=== PATIENT | female | born 1955 | race Caucasian/White ===

== ENCOUNTER → 2017-12-08 10:14 | Outpatient (CLI) | payer OTHER, SELFPAY ==
--- NOTE | 2017-12-08 10:18 | MM_ITS ---
MM Dig screening mamm BI w/CAD CAD Screening COMPARISON: Digital mammograms 08/20/2016 and outside analog mammograms from 04/25/2013 INDICATION: There is history of breast cancer in patient's paternal aunt. TECHNIQUE: Standard CC and MLO images were obtained. R2 CAD reviewed. FINDINGS: The breasts are closed primarily of fat with minimal scattered fibroglandular densities in the subareolar regions. There is a mole marker on each breast. Is stable nodular density upper outer quadrant right breast likely intramammary node. There is a benign-appearing calcination left breast. There is no suspicious lesion and there are no suspicious microcalcifications. IMPRESSION: Fibrofatty parenchyma with no suspicious lesion seen BI-RADS Category: 2 Benign Finding(s) RECOMMENDED FOLLOW-UP: 1YR - 1 YEAR FOLLOW-UP (A letter has been sent to the patient regarding results of the study.)
== END ==
PROVIDERS: Family Provider Internal Medicine Adolescent Medicine; PCP Internal Medicine Adolescent Medicine; Visit Provider Internal Medicine Adolescent Medicine
DX: Z12.31 Encounter for screening mammogram for malignant neoplasm of breast (principal)
CPT/HCPCS: 77067

== ENCOUNTER → 2018-03-02 08:06 | Outpatient (CLI) | payer OTHER, SELFPAY ==
[2018-03-02 09:20] LABS: Alanine Aminotransferase 23 U/L (12-78); Albumin Level 3.7 gm/dL (3.4-5.0); Albumin/Globulin Ratio 1.1 (1.1-1.8); Alkaline Phosphatase 70 U/L (46-116); Anion Gap 12.8 mEq/L (5-15); Aspartate Amino Transferase 9 U/L (15-37); Bilirubin,Total 0.7 mg/dL (0.2-1.0); Blood Urea Nitrogen 25 mg/dL (7-18); Calcium 8.9 mg/dL (8.5-10.1); Carbon Dioxide 26 mmol/L (21.0-32.0); Chloride 108 mmol/L (98-107); Chol/HDL Ratio 2.4 (1-3.5); Cholesterol 160 mg/dL (140-200); Creatinine,Serum 1.46 mg/dL (0.55-1.02); Estimated Glomerular Filt Rate 36 ml/min (>60); GFR (African American) 44 ML/MIN (>60); Globulin 3.5 gm/dl (1.3-3.2); Glucose 109 mg/dL (74-106); HDL Cholesterol 68 mg/dL (29-89); LDL Cholesterol 79 mg/dL (0-130); Potassium 3.8 mmoL/L (3.5-5.1); Sodium 143 mmol/L (136-145); Thyroid Stimulating Hormone 4.75 uIU/ml (0.358-3.740); Total Protein,Serum 7.2 gm/dL (6.4-8.2); Triglycerides 64 mg/dL (30-200); VLDL Cholesterol 13 mg/dL (0-40)
[2018-03-03 14:54] LABS: Vitamin B12 1325 pg/mL (232-1245)
== END ==
PROVIDERS: PCP Internal Medicine Adolescent Medicine; Visit Provider Nurse Practitioner Family
DX: Z00.00 Encounter for general adult medical examination without abnormal findings (principal); E78.5 Hyperlipidemia, unspecified; I10 Essential (primary) hypertension; E03.9 Hypothyroidism, unspecified; E53.8 Deficiency of other specified B group vitamins
CPT/HCPCS: 36415; 80053; 80061; 82607; 84443

== ENCOUNTER → 2018-04-22 10:38 | Outpatient (CLI) | payer OTHER, SELFPAY ==
[2018-04-22 14:03] LABS: Alanine Aminotransferase 18 U/L (12-78); Albumin Level 3.8 gm/dL (3.4-5.0); Albumin/Globulin Ratio 1.1 (1.1-1.8); Alkaline Phosphatase 64 U/L (46-116); Anion Gap 14.1 mEq/L (5-15); Aspartate Amino Transferase 13 U/L (15-37); Bilirubin,Total 0.9 mg/dL (0.2-1.0); Blood Urea Nitrogen 31 mg/dL (7-18); Calcium 9.2 mg/dL (8.5-10.1); Carbon Dioxide 28 mmol/L (21.0-32.0); Chloride 106 mmol/L (98-107); Chol/HDL Ratio 2.1 (1-3.5); Cholesterol 149 mg/dL (140-200); Creatinine,Serum 1.35 mg/dL (0.55-1.02); Estimated Glomerular Filt Rate 40 ml/min (>60); GFR (African American) 48 ML/MIN (>60); Globulin 3.4 gm/dl (1.3-3.2); Glucose 101 mg/dL (74-106); HDL Cholesterol 70 mg/dL (29-89); LDL Cholesterol 66 mg/dL (0-130); Potassium 4.1 mmoL/L (3.5-5.1); Sodium 144 mmol/L (136-145); Thyroid Stimulating Hormone 3.77 uIU/ml (0.358-3.740); Total Protein,Serum 7.2 gm/dL (6.4-8.2); Triglycerides 63 mg/dL (30-200); VLDL Cholesterol 13 mg/dL (0-40)
[2018-04-22 14:20] LABS: Basophils % 0.8 % (0.1-2.0); Eosinophils # 0.1 K/mm3 (0.0-0.4); Eosinophils % 1.9 % (0.1-12.0); Hematocrit 40.3 % (37.0-47.0); Hemoglobin 13.4 g/dL (12.2-16.2); Lymphocytes # 1.7 K/mm3 (0.7-4.5); Lymphocytes % 29.6 K/mm3 (10-50); Mean Corpuscular HGB Conc 33.3 g/dL (31.8-35.4); Mean Corpuscular Hemoglobin 28.9 pg (27.0-31.2); Mean Platelet Volume 7.5 fl (7.4-10.4); Monocytes # 0.3 K/mm3 (0.1-1.0); Monocytes % 4.7 % (1.7-9.3); Neutrophils # 3.6 K/mm3 (1.8-7.8); Neutrophils % 63.1 % (37.0-80.0); Platelet Count 219 K/mm3 (142-424); Red Blood Count 4.63 M/mm3 (4.20-5.40); Red Cell Distribution Width 13.9 % (11.5-17.5); White Blood Count 5.6 K/mm3 (4.8-10.8)
== END ==
PROVIDERS: PCP Internal Medicine Adolescent Medicine; Visit Provider Internal Medicine Adolescent Medicine
DX: E78.5 Hyperlipidemia, unspecified (principal); E03.9 Hypothyroidism, unspecified; I10 Essential (primary) hypertension
CPT/HCPCS: 36415; 80053; 80061; 84443; 85025

== ENCOUNTER → 2018-12-20 08:52 | Outpatient (POV) | payer OTHER, SELFPAY ==
[2018-12-20 14:19] LABS: Anion Gap 12.7 mEq/L (5-15); Blood Urea Nitrogen 25 mg/dL (7-18); Calcium 8.8 mg/dL (8.5-10.1); Carbon Dioxide 28 mmol/L (21.0-32.0); Chloride 109 mmol/L (98-107); Estimated Glomerular Filt Rate 41 ml/min (>60); GFR (African American) 50 ML/MIN (>60); Glucose 102 mg/dL (74-106); Potassium 4.7 mmoL/L (3.5-5.1); Sodium 145 mmol/L (136-145)
== END ==
PROVIDERS: PCP Internal Medicine Adolescent Medicine; Visit Provider Internal Medicine Adolescent Medicine
DX: E78.5 Hyperlipidemia, unspecified (principal); E03.9 Hypothyroidism, unspecified; I10 Essential (primary) hypertension
CPT/HCPCS: 36415; 80048

== ENCOUNTER → 2019-04-19 10:47 | Outpatient (POV) | payer OTHER, SELFPAY | PROVIDERS: Visit Provider Dermatology | DX: Z00.00 Encounter for general adult medical examination without abnormal findings (principal) ==

== ENCOUNTER → 2020-01-05 09:53 | Outpatient (CLI) | payer MEDICARE, OTHER, SELFPAY ==
--- NOTE | 2020-01-05 10:46 | MM_ITS ---
PROCEDURE: MM DIG SCREENING MAMM BI W/CAD Digital Breast Tomosynthesis Included CLINICAL INDICATION: SCREENING COMPARISON: DIGMAMMS MAMMOGRAM SCREEN-STRANNER N/C from 04/25/2013 [facility] DIG MAMM-SCREEN ENE W/CAD from 08/20/2016 [facility] MM Dig screening mamm BI w/CAD from 12/08/2017 TECHNIQUE: Standard CC and MLO images and 3D Tomosynthesis was obtained. R2 CAD reviewed. FINDINGS: Mostly fatty replaced fibroglandular tissue. Benign-appearing calcifications and benign-appearing nodules in the upper outer right breast with a asymmetric density in the medial right breast unchanged. No malignant appearing mass or malignant-appearing microcalcification IMPRESSION: BI-RAD Category: 2 Benign Finding(s) FOLLOW-UP: 1YR 1 Year Follow-up (A letter has been sent to the patient regarding results of the study.) Dictated by: John Lee MD 01/06/2020 14:09 Electronically signed by John Lee MD in [place] 01/06/2020 14:09
== END ==
PROVIDERS: PCP Internal Medicine Adolescent Medicine; Visit Provider Internal Medicine Adolescent Medicine
DX: Z12.31 Encounter for screening mammogram for malignant neoplasm of breast (principal)
CPT/HCPCS: 77063; 77067

== ENCOUNTER → 2020-11-13 18:18 | Outpatient (CLI) | payer MEDICARE, OTHER, SELFPAY ==
[2020-11-13 19:02] LABS: Basophils % 0.8 % (0.1-2.0); Eosinophils # 0.1 K/mm3 (0.0-0.4); Eosinophils % 2.4 % (0.1-12.0); Hematocrit 42.1 % (37.0-47.0); Hemoglobin 14.3 g/dL (12.2-16.2); Lymphocytes % 35.1 % (10-50); Mean Corpuscular HGB Conc 33.9 g/dL (31.8-35.4); Mean Corpuscular Hemoglobin 29.7 pg (27.0-31.2); Mean Corpuscular Volume 87.4 fl (81-99); Mean Platelet Volume 9.4 fl (7.4-10.4); Monocytes # 0.3 K/mm3 (0.1-1.0); Neutrophils # 3.1 K/mm3 (1.8-7.8); Neutrophils % 55.7 % (37.0-80.0); Platelet Count 221 K/mm3 (142-424); Red Blood Count 4.82 M/mm3 (4.20-5.40); Red Cell Distribution Width 14.5 % (11.5-17.5); White Blood Count 5.6 K/mm3 (4.8-10.8)
[2020-11-13 19:23] LABS: Alanine Aminotransferase 26 U/L (12-78); Albumin Level 4.3 g/dl (3.5-5.0); Albumin/Globulin Ratio 1.5 (1.1-1.8); Alkaline Phosphatase 81 U/L (38-126); Anion Gap 9.3 mEq/L (5-15); Aspartate Amino Transferase 33 U/L (14-36); Bilirubin,Total 0.7 mg/dl (0.2-1.3); Blood Urea Nitrogen 16 mg/dl (7-17); Calcium 9.5 mg/dl (8.4-10.2); Carbon Dioxide 29 mmol/L (22.0-30.0); Chloride 108 mmol/L (98-107); Chol/HDL Ratio 2.7 (1-3.5); Cholesterol 155 mg/dl (140-200); Estimated Glomerular Filt Rate 45 ml/min (>60); GFR (African American) 55 ML/MIN (>60); Globulin 2.9 g/dL (1.3-3.2); Glucose 98 mg/dl (74-100); HDL Cholesterol 58 mg/dl (40-60); Potassium 4.3 mmoL/L (3.5-5.1); Sodium 142 mmol/L (136-145); Total Protein,Serum 7.2 g/dl (6.3-8.2); Triglycerides 93 mg/dl (30-150); VLDL Cholesterol 19 mg/dL (0-40)
[2020-11-13 19:35] LABS: Direct LDL Cholesterol 57.33 mg/dL (100-129)
== END ==
PROVIDERS: Visit Provider Internal Medicine Adolescent Medicine
DX: I20.8 Other forms of angina pectoris (principal); N18.30 Chronic kidney disease, stage 3 unspecified
CPT/HCPCS: 80053; 80061; 85025

== ENCOUNTER → 2020-11-15 11:52 | Outpatient (CLI) | payer MEDICARE, OTHER, SELFPAY ==
--- NOTE | 2020-11-15 11:57 | NM_ITS ---
APPROVED REPORT Exam: Nuclear Stress Test Indication: Chest pain, SOB, Syncope, Fatigue, HTN, High cholesterol, Family history Patient Location: Outpatient Stress Tech: Doris Lindonkson [place] Tech:VALERIE Her RT(R)(N) Ht: 5 ft 6 in Wt: 185 lbs Bra Size: 42D HR: 64 bpm BP: 188/80 mmHg BSA: 1.93 m2 BMI: 29.8 History: Chest pain, SOB, Syncope, Fatigue, HTN, High cholesterol, Family history Procedure: Patient received a 0.4 mg of intravenous Lexiscan, resting heart rate 64 bpm, resting blood pressure 188/80 mmHg, with Lexiscan maximum heart rate achived was 91 bpm which is Less than 85 % of the maximum predicted heart rate and blood pressure was 186/95 mmHg. With Lexiscan, patient denied any complaint of chest pain. Electrocardiogram Resting electrocardiogram shows sinus rhythm, with Lexiscan there is less than 1.[address] segment depression noted from the baseline EKG. The EKG portion of the Lexiscan is nondiagnostic. Cardiac Stress and Resting SPECT Images: Cardiac Stress and Resting SPECT images were obtained using technetium 99m Myoview 32.9 mCi stress and 10.68 mCi at rest. Gated SPECT for analysis of segmental wall motion and calculation of the ejection fraction also done. Prone images were also obtained. Cardiac stress and resting SPECT images show uniform myocardial activity without segmental perfusion abnormality, computer derived ejection fraction is over 65% with no regional wall motion abnormality, right ventricle is normal size and contractility. Conclusion: 1. The EKG portion of the Lexiscan is nondiagnostic. 2. No scintigraphic evidence of reversible ischemia seen, computer derived ejection fraction is over 65% with no regional wall motion abnormality, right ventricle is normal size and contractility. 3. Normal Lexiscan Myoview study. Electronically signed by : Shlomo Fuchs, 11/15/2020 15:52:12
--- NOTE | 2020-11-15 14:22 | CA_ITS ---
APPROVED REPORT Exam: Pharmacologic Technologist: Elaina Patel, Stress Nurse: MARILU Ht: 5 ft 5 in Wt: 185 lbs BSA: 1.91 m2 HR: 64 bpm BP: 188/80 mmHg Indications: CP Medical History Medical History: HTN Allergies: TYLENOL, SULFA Cardiac Risk Factors: HTN, , FHX of CAD Stress Test Details Test: LEXISCAN HR Resting HR: 63 bpm Max Heart Rate (APMHR): 155 bpm Max HR Achieved: 95 bpm Target HR (85% APMHR): 131 bpm % of APMHR: 61 Recovery HR: 83 bpm BP Resting BP: 188/80 mmHg Max BP: 188/80 mmHg Recovery BP: 177.0/86.0 mmHg ECG Clinical Exercise duration: 04:01 min Highest Stage Achieved: Stress ECG Conclusion PT HAD MILD CHEST PRESSURE, MILD STOMACH DISCOMFORT, MILD SOA. NO ARRHYTHMIAS, NO SIGNIFICANT ST-T CHANGES. UNREMARKABLE LEXISCAN STRESS. MYOVIEW IMAGES REPORTED SEPERATELY. Test Summary REST . . . . . . . Sitting REST 04:20 . . 63 . 188/ 80 . . Stage 1 . . . . . . . Cardiolite injected Stage 1 01:00 . . 78 . . . . Stage 2 01:00 . . 90 . 186/ 95 . . Stage 3 01:00 . . 94 . 185/ 97 . . Stage 4 01:00 . . 88 . 173/ 89 . . Stage 4 01:01 . . 87 . 173/ 89 . Stop exercise at 04:01 RECOVERY 01:00 . . 89 . . . . RECOVERY 02:00 . . 82 . 177/ 86 . . RECOVERY 03:00 . . 79 . 179/ 97 . . RECOVERY 03:28 . . 81 . 179/ 97 . . Electronically signed by : Shlomo Fuchs, 11/15/2020 15:43:57
== END ==
PROVIDERS: PCP Internal Medicine Adolescent Medicine; Visit Provider Internal Medicine Adolescent Medicine
DX: I20.8 Other forms of angina pectoris (principal)
CPT/HCPCS: 78452; 93017; A9502; J2785

== ENCOUNTER → 2021-03-15 09:59 | Outpatient (CLI) | payer MEDICARE, OTHER, SELFPAY ==
--- NOTE | 2021-03-15 10:01 | MM_ITS ---
PROCEDURE: MM DIG SCREENING MAMM BI W/CAD Digital Breast Tomosynthesis Included CLINICAL INDICATION: SCREENING COMPARISON: MG [facility] DIG MAMM-SCREEN ENE W/CAD from 08/20/2016 MG [facility] MM Dig screening mamm BI w/CAD from 12/08/2017 MG MM DIG SCREENING MAMM BI W/CAD from 01/05/2020 TECHNIQUE: Standard CC and MLO images and 3D Tomosynthesis was obtained. R2 CAD reviewed. FINDINGS: There are scattered areas of fibroglandular density. Benign-appearing nodules on the right are unchanged. No suspicious appearing mass, malignant-appearing microcalcification, architectural distortion, or skin thickening.. Benign-appearing calcifications. No change with no evidence malignancy IMPRESSION: Benign findings BI-RAD Category: 2 Benign Finding FOLLOW-UP: 1 YR 1 Year Follow-up (A letter has been sent to the patient regarding results of the study.) Dictated by: John Lee MD 03/28/2021 11:21 John Lee MD in [place] 03/28/2021 11:21
== END ==
PROVIDERS: PCP Internal Medicine Adolescent Medicine; Visit Provider Internal Medicine Adolescent Medicine
DX: Z12.31 Encounter for screening mammogram for malignant neoplasm of breast (principal)
CPT/HCPCS: 77063; 77067

== ENCOUNTER → 2021-07-09 18:48 | Outpatient (CLI) | payer MEDICARE, OTHER, SELFPAY ==
[2021-07-09 19:43] LABS: Anion Gap 13.6 mEq/L (5-15); Blood Urea Nitrogen 43 mg/dl (7-17); Calcium 9.4 mg/dl (8.4-10.2); Carbon Dioxide 27 mmol/L (22.0-30.0); Chloride 101 mmol/L (98-107); Estimated Glomerular Filt Rate 28 ml/min (>60); GFR (African American) 34 ML/MIN (>60); Glucose 105 mg/dl (74-100); Potassium 4.6 mmoL/L (3.5-5.1); Sodium 137 mmol/L (136-145)
== END ==
PROVIDERS: Visit Provider Internal Medicine Adolescent Medicine
DX: I10 Essential (primary) hypertension (principal)
CPT/HCPCS: 80048

== ENCOUNTER → 2021-07-26 10:46 | Outpatient (CLI) | payer MEDICARE, OTHER, SELFPAY ==
[2021-07-26 14:39] LABS: Blood Urea Nitrogen 22 mg/dl (7-17); Calcium 9.3 mg/dl (8.4-10.2); Carbon Dioxide 29 mmol/L (22.0-30.0); Chloride 104 mmol/L (98-107); Estimated Glomerular Filt Rate 45 ml/min (>60); GFR (African American) 54 ML/MIN (>60); Glucose 102 mg/dl (74-100); Sodium 139 mmol/L (136-145)
== END ==
PROVIDERS: Visit Provider Internal Medicine Adolescent Medicine
DX: R74.8 Abnormal levels of other serum enzymes (principal)
CPT/HCPCS: 36415; 80048

== ENCOUNTER → 2021-10-15 10:10 | Outpatient (CLI) | payer MEDICARE, OTHER, SELFPAY ==
[2021-10-15 14:18] LABS: Basophils # 0.1 K/mm3 (0-0.2); Basophils % 0.9 % (0.1-2.0); Eosinophils # 0.1 K/mm3 (0.0-0.4); Eosinophils % 2.1 % (0.1-12.0); Hematocrit 42.8 % (37.0-47.0); Hemoglobin 14.4 g/dL (12.2-16.2); Lymphocytes # 1.6 K/mm3 (0.7-4.5); Lymphocytes % 25.1 % (10-50); Mean Corpuscular HGB Conc 33.6 g/dL (31.8-35.4); Mean Corpuscular Hemoglobin 29.2 pg (27.0-31.2); Mean Corpuscular Volume 87.1 fl (81-99); Mean Platelet Volume 8.4 fl (7.4-10.4); Monocytes # 0.3 K/mm3 (0.1-1.0); Neutrophils # 4.2 K/mm3 (1.8-7.8); Neutrophils % 66.9 % (37.0-80.0); Platelet Count 229 K/mm3 (142-424); Red Blood Count 4.91 M/mm3 (4.20-5.40); Red Cell Distribution Width 14.1 % (11.5-17.5); White Blood Count 6.3 K/mm3 (4.8-10.8)
[2021-10-15 14:28] LABS: Alanine Aminotransferase 25 U/L (12-78); Albumin Level 4.1 g/dl (3.5-5.0); Albumin/Globulin Ratio 1.5 (1.1-1.8); Alkaline Phosphatase 80 U/L (38-126); Anion Gap 11.9 mEq/L (5-15); Aspartate Amino Transferase 28 U/L (14-36); Blood Urea Nitrogen 25 mg/dl (7-17); Carbon Dioxide 24 mmol/L (22.0-30.0); Chloride 110 mmol/L (98-107); Chol/HDL Ratio 2.7 (1-3.5); Cholesterol 150 mg/dl (140-200); Estimated Glomerular Filt Rate 50 ml/min (>60); GFR (African American) 60 ML/MIN (>60); Globulin 2.7 g/dL (1.3-3.2); Glucose 112 mg/dl (74-100); HDL Cholesterol 56 mg/dl (40-60); Potassium 3.9 mmoL/L (3.5-5.1); Sodium 142 mmol/L (136-145); Total Protein,Serum 6.8 g/dl (6.3-8.2); Triglycerides 87 mg/dl (30-150); VLDL Cholesterol 17 mg/dL (0-40)
[2021-10-15 14:39] LABS: Direct LDL Cholesterol 55.22 mg/dL (100-129)
[2021-10-15 15:17] LABS: Vitamin B12 351 pg/mL (239-931)
== END ==
PROVIDERS: Visit Provider Internal Medicine Adolescent Medicine
DX: E03.9 Hypothyroidism, unspecified (principal); E78.5 Hyperlipidemia, unspecified; E53.8 Deficiency of other specified B group vitamins
CPT/HCPCS: 36415; 80053; 80061; 82607; 84443; 85025

== ENCOUNTER → 2021-11-21 09:03 | Outpatient (CLI) | payer MEDICARE, OTHER, SELFPAY ==
[2021-11-21 14:48] LABS: Chloride 106 mmol/L (98-107); Sodium 142 mmol/L (136-145)
[2021-11-21 14:52] LABS: Blood Urea Nitrogen 22 mg/dl (7-17); Calcium 9.4 mg/dl (8.4-10.2); Carbon Dioxide 30 mmol/L (22.0-30.0); Estimated Glomerular Filt Rate 41 ml/min (>60); GFR (African American) 50 ML/MIN (>60); Glucose 116 mg/dl (74-100)
== END ==
PROVIDERS: Visit Provider Internal Medicine Adolescent Medicine
DX: R79.89 Other specified abnormal findings of blood chemistry (principal)
CPT/HCPCS: 36415; 80048

== ENCOUNTER → 2022-04-15 07:34 | Outpatient (CLI) | payer MEDICARE, OTHER, SELFPAY | PROVIDERS: PCP Internal Medicine Adolescent Medicine; Visit Provider Internal Medicine Adolescent Medicine | DX: Z12.31 Encounter for screening mammogram for malignant neoplasm of breast (principal) ==

== ENCOUNTER → 2022-04-24 12:59 | Outpatient (CLI) | payer MEDICARE, OTHER, SELFPAY ==
--- NOTE | 2022-04-24 13:52 | MM_ITS ---
PROCEDURE INFORMATION: Exam: MG Bilateral Screening 3D Mammography Exam date and time: 04/24/2022 1:43 PM Age: 65 years old Clinical indication: Screening examination TECHNIQUE: Imaging protocol: Bilateral Screening tomosynthesis and 2D mammography including computer-aided detection (CAD) when performed. COMPARISON: 1. MG MM DIG SCREENING MAMM BI W/CAD 03/15/2021 10:14 AM 2. MG MM DIG SCREENING MAMM BI W/CAD 01/05/2020 10:46 AM FINDINGS: MAMMOGRAPHY: Breast composition: There are scattered areas of fibroglandular density. Mass: None. Architectural distortion: None. Calcifications: No suspicious calcifications. Asymmetric density: None. Skin thickening: None. Axillary adenopathy: None. IMPRESSION: No mammographic evidence of malignancy. Annual screening is recommended unless otherwise clinically indicated. ASSESSMENT: BI-RADS Category 1: Negative
== END ==
PROVIDERS: PCP Internal Medicine Adolescent Medicine; Visit Provider Internal Medicine Adolescent Medicine
DX: Z12.31 Encounter for screening mammogram for malignant neoplasm of breast (principal)
CPT/HCPCS: 77063; 77067

== ENCOUNTER 2023-03-17 09:00 | Outpatient (RCR) | payer MEDICARE, OTHER, SELFPAY ==
--- NOTE | 2023-01-16 14:22 | HMH.PTOPWND ---
Rehab Outpt Wound Evaluation Rehab OP Wound Evaluation Start: 01/16/23 14:09 Freq: Status: Active Protocol: Document 01/16/23 14:09 MADONNA (Rec: 01/16/23 14:22 PHOERASMO [id number]) E-signed By Danny Christensen, PT Subjective/History History History This is the initial PT eval for Brianda Corcoran, 66 yowf who presents with 3 wk hx of increased B LE edema with insidious onset. She reports R LE is considerably worse than the L and has increased pain, as well. She also reports increased numbness/tingling in the lower R leg. She reports PMH of HTN and HLD. Subjective Subjective Currently pain is 6/10 in the R LE. 2/4 TTP noted in R lower leg, 1/4 in L lower leg. No erythema noted at this time, 2 + pitting edema to B lower legs. Lymphedema Eval Classification of Lymphedema Secondary Lymphedema Yes: likely CVI Stemmer's sign Stemmer's Sign no Stage of Lymphedema Lymphedema stages Stage I (Pitting edema, reduces w/ elevation, no fibrosis) Skin Changes Dry Skin Yes Other Changes Yes Pain Scale Pain Scale (0-10) 6 Affected Extremities Areas Affected by Lymphedema/Edema Right Lower Extremity,Left Lower Extremity Manual Lymphatic Drainage Treatment Area MLD Treatment Area Right Lower Extremity,Left Lower Extremity Wound Problems/Impairments Impairments Problems/Impairmments Palpation Tenderness,Impaired Endurance,Impaired Walking, Impaired Standing,Impaired Sitting,Impaired Recreational Activities,Increased Edema, Lymphedema Present,Subjective C/O Pain,Impaired Self Care/ Self Management Prognosis Rehab Potential Good Clinical Impression Consistent with Diagnosis Yes Short Term Goals Number of Weeks 2 Decreased Palpation Tenderness Yes: 1/4 B lower legs Decrease Edema Yes: 1+ pitting edema Decrease Subjective C/O Pain Yes: 4/10 B lower legs Patient to Understand Lymphedema Yes Treatment and Exercises Decrease Girth Measurments by (cm) Yes: B LE total by 5 cm ea Manager Wound Care Goals Number of Weeks 4 Decreased Palpation Tenderness Yes: 0/4 B lower legs Decrease Edema Yes: no pitting edema B LE Decrease Subjective C/O Pain Yes: 2/10 B LE Patient to be Ind w/ HEP Yes Patient to be Ind w/ Donning/Sewell Yes Compression Garments Patient to Adhere Lymphedema Precautions Yes Decrease Girth Measurments by (cm) Yes: B LE total by 20 cm ea. Outpatient Therapy Plan of Care Treatment Plan May Include Therapeutic Exercise Including Home Yes Exercise Program Manual Therapy Techniques Yes Neuromuscular Re-education Yes Therapeutic Activities to Return to Yes Previous Functional/Work Level ADL/Self Care Education Yes Orthotics/Bracing/Splinting Yes Vasopneumatic Compression Pump Yes Massage Yes Manual Lymphatic Drainage Yes Eval/Re-Eval Yes Frequency Times per week 2 Duration Number of Weeks 4 Addendums This patient is a candidate for social No or vocational rehab? Patient/Guardian verbally acknowledges Yes understanding of treatment program and consents to further treatment? Patient/Guardian verbally acknowledges Yes understanding of diagnosis, prognosis and goals for treatment? G -code Required No Eval Complexity PT Charges 73113 - High Complexity PHYSICIAN CERTIFICATION: I certify the specified therapy services for Brianda Corcoran are required, authorized, and reviewed every 30 days.
--- NOTE | 2023-02-24 16:20 | HMH.RHREAS ---
Rehab Reassessment Rehab OP Re-assessment Start: 01/16/23 14:09 Freq: Status: Active Protocol: Document 02/24/23 16:13 MADONNA (Rec: 02/24/23 16:20 PHOERASMO [id number]) E-signed By Danny Christensen, PT Rehab Re-assessment Subjective Subjective Pt reports less pain and tenderness in B LE this date. 10/13 pain today. She reports, They still get heavy and tight if I'm up on them too much. Objective Objective Notes Circumfernetial Measurements: R LE total is 146.3 cm which is -17.0 cm since IE. L LE total is 145.7 cm which is -12.7 cm since IE. TTP: 07/09 B lower legs this date. Edema 1+ pitting edema B lower legs. Pt has shown reduced edema overall, but continues to have increased B LE edema despite performing B LE ankle pumps 3 x/day, wearing compression garments throughout the day, and elevating her legs as much as possible. She also continues to show mild redness and dryness to the skin of B lower legs, despite treatment. Assessment Progress Assessment Progressing as Expected Assessment Notes Pt has shown significant reduction in B LE edema overall, with less pain and tenderness noted. However, she continues to reports difficulty with prolonged walking or standing resulting in decreased ability to perform household care and ADLs. She continues to need skilled intervention to return to prior level of function. Patient goals met ST,2,3,4,5 Goals Not Met LT,2,3,4,5,6,7 Plan Plan Continue per initial POC. Frequency of Therapy 1-2 x/wk Duration of therapy 4 wks Time and Billing Re-Eval Time 16 Re-Eval Billing Units 1 PHYSICIAN CERTIFICATION: I certify the specified therapy services for Brianda Corcoran are required, authorized, and reviewed every 30 days.
== END 2023-03-17 10:30 | disposition home or self-care (01) ==
LOC: PT 09:00
PROVIDERS: PCP Internal Medicine Adolescent Medicine; Visit Provider Internal Medicine Adolescent Medicine
DX: I89.0 Lymphedema, not elsewhere classified (principal)
CPT/HCPCS: 97140; 97163; 97164; 97760

== ENCOUNTER → 2023-04-02 10:51 | Outpatient (CLI) | payer MEDICARE, OTHER, SELFPAY ==
[2023-04-02 11:48] LABS: Basophils # 0.1 K/mm3 (0-0.2); Basophils % 0.7 % (0.1-2.0); Eosinophils # 0.2 K/mm3 (0.0-0.4); Eosinophils % 2.3 % (0.1-12.0); Hematocrit 44.7 % (37.0-47.0); Hemoglobin 14.7 g/dL (12.2-16.2); Lymphocytes # 2.1 K/mm3 (0.7-4.5); Lymphocytes % 28.6 % (10-50); Mean Corpuscular HGB Conc 32.8 g/dL (31.8-35.4); Mean Corpuscular Hemoglobin 28.4 pg (27.0-31.2); Mean Corpuscular Volume 86.6 fl (81-99); Mean Platelet Volume 7.7 fl (7.4-10.4); Monocytes # 0.3 K/mm3 (0.1-1.0); Monocytes % 4.5 % (1.7-9.3); Neutrophils # 4.7 K/mm3 (1.8-7.8); Platelet Count 226 K/mm3 (142-424); Red Blood Count 5.16 M/mm3 (4.20-5.40); Red Cell Distribution Width 13.9 % (11.5-17.5); White Blood Count 7.3 K/mm3 (4.8-10.8)
[2023-04-02 12:48] LABS: Alanine Aminotransferase 21 U/L (12-78); Albumin Level 4.3 g/dl (3.5-5.0); Albumin/Globulin Ratio 1.3 (1.1-1.8); Alkaline Phosphatase 69 U/L (38-126); Anion Gap 16.4 mEq/L (5-15); Aspartate Amino Transferase 25 U/L (14-36); Bilirubin,Total 0.8 mg/dl (0.2-1.3); Blood Urea Nitrogen 24 mg/dl (7-17); Calcium 9.2 mg/dl (8.4-10.2); Carbon Dioxide 23 mmol/L (22.0-30.0); Chloride 107 mmol/L (98-107); Chol/HDL Ratio 2.6 (1-3.5); Cholesterol 138 mg/dl (140-200); Estimated Glomerular Filt Rate 45 ml/min (>60); GFR (African American) 54 ML/MIN (>60); Globulin 3.2 g/dL (1.3-3.2); Glucose 110 mg/dl (74-100); HDL Cholesterol 53 mg/dl (40-60); Potassium 4.4 mmoL/L (3.5-5.1); Sodium 142 mmol/L (136-145); Total Protein,Serum 7.5 g/dl (6.3-8.2); Triglycerides 101 mg/dl (30-150); VLDL Cholesterol 20 mg/dL (0-40)
[2023-04-02 13:00] LABS: Direct LDL Cholesterol 59.54 mg/dL (100-129)
[2023-04-02 13:06] LABS: 25-OH Vitamin D, Total 60.4 ng/mL (30-100)
[2023-04-02 13:37] LABS: Vitamin B12 936 pg/mL (239-931)
== END ==
PROVIDERS: PCP Internal Medicine Adolescent Medicine; Visit Provider Internal Medicine Adolescent Medicine
DX: M19.049 Primary osteoarthritis, unspecified hand (principal); E03.9 Hypothyroidism, unspecified; E53.8 Deficiency of other specified B group vitamins; E78.5 Hyperlipidemia, unspecified
CPT/HCPCS: 36415; 80053; 80061; 82306; 82607; 85025

== ENCOUNTER → 2023-04-22 09:28 | Outpatient (CLI) | payer MEDICARE, OTHER, SELFPAY ==
--- NOTE | 2023-04-22 09:35 | XR_ITS ---
FINAL REPORT CLINICAL HISTORY: ENE HIP PAIN,ARTHRITIS FINDINGS: Left hip Two views were obtained. There is no acute fracture or dislocation. There are mild degenerative changes. No soft tissue abnormality is identified. IMPRESSION: Mild degenerative changes. Reviewed, Interpreted and Dictated by Cheikh Danielle III, MD Transcribed by Bri Kim Authenticated and [facility]
--- NOTE | 2023-04-22 09:35 | XR_ITS ---
FINAL REPORT CLINICAL HISTORY: ENE HAND PAIN,ARTHRITIS FINDINGS: Left hand Three views were obtained. There is no acute fracture or dislocation. There are mild and moderate degenerative changes, worst involving the 1st carpometacarpal joint. No soft tissue abnormality is identified. IMPRESSION: Degenerative changes as above. Reviewed, Interpreted and Dictated by Cheikh Danielle III, MD Transcribed by Bri Kim Authenticated and [facility]
--- NOTE | 2023-04-22 09:35 | XR_ITS ---
FINAL REPORT CLINICAL HISTORY: ENE HIP PAIN,ARTHRITIS FINDINGS: Right hip Three views were obtained. There is no acute fracture or dislocation. There are mild degenerative changes. No soft tissue abnormality is identified. IMPRESSION: Mild degenerative changes. Reviewed, Interpreted and Dictated by Cheikh Danielle III, MD Transcribed by Bri Kim Authenticated and [facility]
--- NOTE | 2023-04-22 09:35 | XR_ITS ---
FINAL REPORT CLINICAL HISTORY: ENE HAND PAIN,ARTHRITIS FINDINGS: Right hand Three views were obtained. There is no acute fracture or dislocation. There are moderate degenerative changes in the 1st carpometacarpal and 1st interphalangeal joints. There are mild degenerative changes elsewhere. No soft tissue abnormality is identified. IMPRESSION: Degenerative changes as above. Reviewed, Interpreted and Dictated by Cheikh Danielle III, MD Transcribed by Bri Kim Authenticated and [facility]
== END ==
PROVIDERS: PCP Internal Medicine Adolescent Medicine; Visit Provider Internal Medicine Adolescent Medicine
DX: M25.551 Pain in right hip (principal); M25.552 Pain in left hip; M19.049 Primary osteoarthritis, unspecified hand
CPT/HCPCS: 73130; 73502

== ENCOUNTER 2024-03-29 11:35 | Outpatient (CLI) | payer MEDICARE, SELFPAY ==
--- NOTE | 2024-03-29 | CA_ITS ---
APPROVED REPORT Exam: Pharmacologic Technologist: Mel Oneil Ht: 5 ft 3 in Wt: 193 lbs BSA: 1.90 m2 HR: 60 bpm BP: 168/78 mmHg Rhythm: NSR Indications: Shortness of Breath Medical History Medications: Amlodipine,,,,, Lisinopril,,,,, Levothyroxine,,,,, Gabapentin,,,,, Vitamin B12,,,,, Pantoprazole,,,,, Carvedilol,,,,, DulOXETINE,,,,, RoSUVASTATIN,,,,, Stress Test Details Test: LEXISCAN HR Resting HR: 63 bpm Max Heart Rate (APMHR): 151 bpm Max HR Achieved: 90 bpm Target HR (85% APMHR): 128 bpm % of APMHR: 60 Recovery HR: 77 bpm BP Resting BP: 168.0/78.0 mmHg Max BP: 172.0/78.0 mmHg Recovery BP: 163.0/75.0 mmHg ECG Resting ECG: NSR Stress ECG: No significant ST changes Arrhythmia: None Clinical Exercise duration: 04:00 min Highest Stage Achieved: Stress ECG Conclusion Symptoms: Shortness of air, chest pain, dizziness, nausea Arrhythmias/Ectopy: None ST-T Changes: None. Conclusion: Unremarkable Lexiscan stress test. Myoview images reported separately. Test Summary REST . . . . . . . Resting REST 05:47 . . 63 . 168/ 78 . . Stage 1 . . . . . . . Myoview Injected Stage 1 01:00 . . 70 . . . . Stage 2 01:00 . . 84 . 170/ 84 . . Stage 3 01:00 . . 87 . 166/ 81 . . Stage 4 01:00 . . 83 . 172/ 78 . Stop exercise at 04:00 RECOVERY 01:00 . . 82 . 156/ 77 . . RECOVERY 02:00 . . 78 . 163/ 75 . . RECOVERY 02:29 . . 76 . 163/ 75 . . Electronically signed by : Sakina Healy MD 03/30/2024 12:11:10
--- NOTE | 2024-03-29 11:40 | NM_ITS ---
APPROVED REPORT Exam: Nuclear Stress Test Indication: Palpitations, HTN, High cholesterol, Family history Patient Location: Outpatient Stress Tech: Mel Oneil NM Tech:Kayla Bailey, ARRT, RT (R)(N) Ht: 5 ft 3 in Wt: 193 lbs Bra Size: 44DD HR: 63 bpm BP: 168/78 mmHg BSA: 1.90 m2 Rhythm: NSR TID: 1.39 BMI: 34.1 History: Palpitations, HTN, High cholesterol, Family history Procedure: Patient received 0.4 mg of intravenous Lexiscan, resting heart rate 63 bpm, resting blood pressure 168/78 mmHg, with Lexiscan maximum heart rate achieved was 90 bpm which is % of the maximum predicted heart rate and blood pressure was 172/78 mmHg. With Lexiscan, patient denied any complaint of chest pain. Cardiac Stress and Resting SPECT Images: Cardiac Stress and Resting SPECT images were obtained using technetium 99m Myoview 32.4 mCi stress and 10.98 mCi at rest. Resting and stress imaging in supine and prone positions demonstrate no evidence of fixed or reversible perfusion defects. There is increase in transient ischemic dilatation ratio (TID 1.39), suggestive of possible multivessel disease or balanced ischemia. Gated imaging demonstrates normal global and regional LV systolic function. LVEF is calculated at 73%. Conclusion: No evidence of fixed or reversible perfusion defects. There is increase in transient ischemic dilatation ratio (TID 1.39), suggestive of possible multivessel disease or balanced ischemia. Gated imaging demonstrates normal global and regional LV systolic function. LVEF is calculated at 73%. In the setting of normal LV function and presence of TID, further evaluation noninvasively with CCTA may be suggested prior to proceeding with invasive coronary angiography, if clinically feasible. Electronically signed by : Sakina Healy MD 03/30/2024 12:12:37
[2024-03-29] MEDS: ISOTOPE MYOVIEW (PER STUDY) 1 DOSE IV (13:44)
[2024-03-29] MEDS: SODIUM CHLORIDE 0.9% 10ML SYR (RAD ONLY) 10 ML IV ×2 (13:44)
[2024-03-29] MEDS: REGADENOSON 0.4MG/5ML SYRINGE 0.4 MG IV (13:44)
== END 2024-03-29 23:59 | disposition home or self-care (01) ==
PROVIDERS: PCP Internal Medicine Adolescent Medicine; Visit Provider Internal Medicine Adolescent Medicine
DX: R06.02 Shortness of breath (principal)
CPT/HCPCS: 78452; 93017; 93018; A9502; J2785

== ENCOUNTER 2024-04-11 15:14 | Outpatient (CLI) | payer MEDICARE, SELFPAY ==
--- NOTE | 2024-04-11 15:17 | MM_ITS ---
PROCEDURE INFORMATION: Exam: MG Bilateral Screening 3D Mammography Exam date and time: 04/11/2024 3:02 PM Age: 67 years old Clinical indication: Screening examination TECHNIQUE: Imaging protocol: Bilateral Screening tomosynthesis and 2D mammography including computer-aided detection (CAD) when performed. COMPARISON: 1. MG MM DIG SCREENING MAMM BI W/CAD 04/24/2022 1:43 PM 2. MG MM DIG SCREENING MAMM BI W/CAD 03/15/2021 10:14 AM FINDINGS: MAMMOGRAPHY: Breast composition: The breasts are almost entirely fatty. Mass: None. Architectural distortion: None. Calcifications: No suspicious calcifications. Asymmetric density: None. Skin thickening: None. Axillary adenopathy: None. IMPRESSION: No mammographic evidence of malignancy. Annual screening is recommended unless otherwise clinically indicated. ASSESSMENT: BI-RADS Category 1: Negative.
== END 2024-04-11 23:59 | disposition home or self-care (01) ==
LOC: RAD 15:15
PROVIDERS: PCP Internal Medicine Adolescent Medicine; Visit Provider Internal Medicine Adolescent Medicine
DX: Z12.31 Encounter for screening mammogram for malignant neoplasm of breast (principal)
CPT/HCPCS: 77063; 77067

== ENCOUNTER 2024-07-19 08:55 | Outpatient (CLI) | payer MEDICARE, SELFPAY ==
[2024-07-19] VITALS (7 sets, daily range): BP systolic 136–188; BP diastolic 74–90; PULSE 62–68; RESP 16–18; TEMP 36.1; O2SAT 95–99; BMI 34.2
--- NOTE | 2024-07-19 09:00 | CT_ITS ---
APPROVED REPORT Corporate Technical Recruiter: CLINICAL INDICATION Chest Pain, transient ischemic dilatation (TID) on nuclear stress testing TECHNIQUE Image Acquisition: A 128 slice MDCT scanner ([employer]) was used for data acquisition. A noncontrast coronary calcium scan was performed. A CT attenuation threshold of 130 Hounsfield units (HU) was used for the detection of calcium in contiguous voxels of 1 sq mm in area to be counted as individual lesions. Bolus tracking in the ascending aorta with a threshold of 180 HU was performed. Immediately afterwards, ECG synchronized cardiac CT was then performed from the cardiac base to apex using retrospective gating with ECG tube current modulation. A total of 85 mL of Isovue 370 mg/mL contrast medium was administered at 5 mL/sec followed by a saline flush using a biphasic injection protocol. A tube voltage of 120 KVp was used. The patient received the following medications prior to the cardiac CT. 0.8 mg of sublingual nitroglycerin The average heart rate at the time of acquisition was 53 bpm and regular. Image Reconstruction Transaxial images were reconstructed at 0.67 mm slide thickness. Data was reviewed interactively on an advanced workstation capable of 2 and 3-dimensional displays in all conventional reconstruction formats, including multiplanar reformations, maximum intensity projections, curved multiplanar reformations, and volume rendered reconstructions. When applicable, selected routine images describing the relevant coronary anatomy and pathology were saved and sent to PACS. Complications None Technical Quality Overall image quality was good. Coronary artery opacification was adequate. Total DLP (Dose-Length Product) is 1359.3 mGy-cm. The reported value represents the total of one or more individual components during the CT acquisition of this date and at this time, and as such, the same value may appear in more than one CT report depending on the interpreting/reporting physicians. COMPARISON None FINDINGS CT Coronary Calcium Scoring LMA (Left Main Artery) = 0 LAD (Left Anterior Descending) = 33 LCX (Left Coronary Circumflex) = 0 RCA (Right Coronary Artery) = 1 Total Calcium Score = 34 using the AJ-130 method. The observed calcium score of 34 is at 61st percentile for subjects of the same age, sex, and race/ethnicity. The interpretation of the calcium heart score is based on the following continuum*: 0 = no calcified plaque detected (risk of coronary artery disease is very low ??? less than 5%) 1-10 = calcium detected in extremely minimal levels (risk of coronary diseases is still low ??? less than 10%) 11-100 = mild levels of plaque detected with certainty (mild or minimal narrowing of heart arteries is likely) 101-400 = definite,at least moderate levels of plaque detected (relatively high risk of a heart attack within 3-5 years) >401-999 = extensive levels of plaque detected (high risk of heart attack, high levels of vascular disease are present, high likelihood of at least one significant coronary narrowing) *The calcium heart score quantifies the burden of coronary calcification/plaque in the coronary arteries. The calcium heart score is not able to evaluate the presence or burden of non-calcified (i.e. soft) plaque. There is no identifiable calcification in the aortic valve, mitral annulus or mitral valve, pericardium, or myocardium. Coronary CT Angiography The coronary arterial system is right dominant. Quantitative Stenosis Grading: Left Main (LM): The left main originates normally from the left sinus of Valsalva. The LM bifurcates into the left anterior descending artery and left circumflex artery. The LM is patent with no evidence of atherosclerosis. Left Anterior Descending (LAD) and Diagonal Branches: The LAD gives off 2 diagonal branch(es). There is mild calcified/noncalcified plaque in the proximal LAD segment, with up to 25-49% luminal stenosis. There is no evidence of LAD-myocardial bridge. Left Circumflex (LCX) and Obtuse Marginals (OM): The LCX gives off 1 Obtuse Marginal (OM) branch(es). The LCX and its branches are patent with no evidence of atherosclerosis. 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 The RCA has a sharp-angeled takeoff, and follows an extramural course in an interarterial manner. oThe RCA and its branches are patent with no evidence of atherosclerosis. There is minimal calcification in the proximal RCA, with no evidence of luminal stenosis. Non-Coronary Cardiac Findings: Analysis of the left ventricular (LV) structure and function was performed after 3-D reconstruction of the LV from axial images, with user-corrected automatic contouring for assessment of LV volumes and user-defined reconstruction from oblique planes for measurement of 3-D cardiac structure and function. -The left ventricle systolic function is normal. -There is no left atrial appendage filling defect. Two right pulmonary veins and two left pulmonary veins drain normally into the left atrium. -No pericardial thickening or calcification. -Central and branch pulmonary arteries in the [id number] are unremarkable. -Thoracic aorta within the visualized thoracic aortic-branches in the [id number] is unremarkable. Extracardiac Structures No significant extra-cardiac findings. Note, however, that this study is focused on the cardiac findings. IMPRESSION -Presence of coronary calcification with an Agatston score = 34 using the AJ-130 method. -The observed calcium score of 34 is at 61st percentile for subjects of the same age, sex, and race/ethnicity. 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 The RCA has a sharp-angeled takeoff, and follows an extramural course in an interarterial manner. oThe RCA and its branches are patent with no evidence of atherosclerosis. There is minimal calcification in the proximal RCA, with no evidence of luminal stenosis. -No evidence of significant flow-limiting atherosclerosis of the coronary arteries. -CAD-RADS 1. Management recommendations per ACC/AHA guidelines*, as clinically appropriate. *Recommendations: CAD RADS 0: Reassurance. Consider non-atherosclerotic causes of chest pain. CAD RADS 1: Consider non-atherosclerotic causes of chest pain. Consider preventive therapy and risk factor modification. CAD RADS 2: Consider non-atherosclerotic causes of chest pain. Consider preventive therapy and risk factor modification, particularly for patients with nonobstructive plaque in multiple segments. CAD RADS 3: Consider further functional testing. Consider symptom-guided anti-ischemic and preventive pharmacotherapy as well as risk factor modification per published guideline statements. CAD RADS 4A: Consider further functional testing or invasive coronary angiography with revascularization per published guideline statements. Consider symptom-guided anti-ischemic and preventive pharmacotherapy as well as risk factor modification per published guideline statements. CAD RADS 4B: Invasive coronary angiography recommended with revascularization per published guideline statements. Consider symptom-guided anti-ischemic and preventive pharmacotherapy as well as risk factor modification per published guideline statements. CAD RADS 5: Consider invasive angiography and/or viability assessment with revascularization per published guideline statements. Consider symptom-guided anti-ischemic and preventive pharmacotherapy as well as risk factor modification per published guideline statements. CRITICAL RESULT None COMMUNICATION Per this written report The coronary and cardiac findings of this CCTA were reviewed, reported, and signed by Edwin Healy MD (Production Welding Supervisor) Conclusion Electronically signed by : Sakina Healy MD 07/19/2024 15:44:16
[2024-07-19 09:38] LABS: Chloride 105 mmol/L (98-107); Potassium 4.6 mmoL/L (3.5-5.1); Sodium 137 mmol/L (136-145)
[2024-07-19 09:41] LABS: Blood Urea Nitrogen 29 mg/dl (7-17); Creatinine Clearance Estimated 56 mL/min (50-200); Estimated Glomerular Filt Rate 37 ml/min (>60); GFR (African American) 45 ML/MIN (>60)
[2024-07-19 09:42] LABS: Calcium 9.4 mg/dl (8.4-10.2); Glucose 121 mg/dl (74-100)
[2024-07-19] MEDS: 0.9 % SODIUM CHLORIDE 1000ML 1,000 ML 999 ML IV (09:45)
[2024-07-19] MEDS: FAMOTIDINE 20MG/2ML VIAL 20 MG IV (10:00)
[2024-07-19] MEDS: diphenhydrAMINE 50MG/ML VIAL 25 MG IV (10:00)
[2024-07-19] MEDS: METOPROLOL TARTRATE 5MG/5ML VIAL *IVABRADINE+METOPROLOL REGIMINE 5 MG IV (10:18)
[2024-07-19] MEDS: METHYLPREDNISOLONE SOD SUCC 125MG VIAL 125 MG IV (10:20)
[2024-07-19] MEDS: IOPAMIDOL-370 (76%);100ML BOTTLE 80 ML IV (10:25)
[2024-07-19] MEDS: SODIUM CHLORIDE 0.9% 10ML SYR (RAD ONLY) 10 ML IV (10:25)
[2024-07-19] MEDS: 0.9 % SODIUM CHLORIDE 50 ML VIAL 40 ML IV (10:25)
[2024-07-19 10:57] LABS: Anion Gap 10.6 mEq/L (5-15); Carbon Dioxide 26 mmol/L (22.0-30.0)
== END 2024-07-19 23:59 | disposition home or self-care (01) ==
PROVIDERS: PCP Internal Medicine Adolescent Medicine; Visit Provider Internal Medicine
DX: R94.39 Abnormal result of other cardiovascular function study (principal)
CPT/HCPCS: 75574; 80048; J1200; J2919; J7030; Q9967; S0028